=== PATIENT | male | born 1965 | race Caucasian/White ===

== ENCOUNTER 2017-12-13 14:40 | Emergency (ER) | payer MEDICAID ==
[~2017-12-13] VITALS: Ht 190.5 cm; Wt 103.3 kg
[2017-12-13 14:41] VITALS: BP 142/84
== END 2017-12-13 16:03 | disposition home or self-care (01) ==
LOC: ED 16:00
DX: J20.9 Acute bronchitis, unspecified (principal); J00 Acute nasopharyngitis [common cold]; F10.20 Alcohol dependence, uncomplicated; M79.1 Myalgia
CPT/HCPCS: 71046; 99284

== ENCOUNTER 2018-05-04 13:22 | Emergency (ER) | payer MEDICAID ==
[~2018-05-04] VITALS: Ht 190.5 cm; Wt 107.7 kg
[2018-05-04 13:31] VITALS: BP 144/80
== END 2018-05-04 14:07 | disposition home or self-care (01) ==
LOC: ED 14:01
DX: J01.00 Acute maxillary sinusitis, unspecified (principal); B34.9 Viral infection, unspecified; Z87.891 Personal history of nicotine dependence; Z86.19 Personal history of other infectious and parasitic diseases
CPT/HCPCS: 99283

== ENCOUNTER 2018-07-20 19:29 | Inpatient (IN) | payer MEDICAID ==
[~2018-07-20] VITALS: Ht 191.8 cm; Wt 98.5 kg
[2018-07-20] MEDS ORDERED: THIAMINE 100MG TABLET ONE (19:58)
[2018-07-20] MEDS ORDERED: ONDANSETRON ODT 4 MG ONE (19:59)
[2018-07-20] MEDS ORDERED: THIAMINE 100MG TABLET PO ONE (20:00)
[2018-07-20] MEDS ORDERED: FAMOTIDINE 20 MG/2 ML IVP ONE (20:00)
[2018-07-20] MEDS ORDERED: SODIUM CHLORIDE 0.9% 1,000ML IVBOLUS ONE (20:00)
[2018-07-20] MEDS ORDERED: ONDANSETRON ODT 4 MG PO ONE (20:00)
[2018-07-20 20:11] LABS: BASOPHILS # (AUTO) 0.04 x10^3/uL (0-0.1); BASOPHILS % (AUTO) 0 % (0-1); EOSINOPHILS # (AUTO) 0.04 x10^3/uL (0-0.4); EOSINOPHILS % (AUTO) 0 % (1-7); LYMPHOCYTES # (AUTO) 2.08 x10^3/uL (1-3.4); LYMPHOCYTES % (AUTO) 20 % (22-44); MD NO; MEAN CORPUSCULAR HEMOGLOBIN 31.5 pg (27.5-34.5); MEAN CORPUSCULAR HGB CONC 33.1 g/dL (33.2-36.2); MEAN CORPUSCULAR VOLUME 95.2 fL (81-97); MONOCYTES # (AUTO) 0.65 x10^3/uL (0.2-0.8); MONOCYTES % (AUTO) 6 % (2-9); NEUTROPHILS # (AUTO) 7.88 x10^3/uL (1.8-6.8); NEUTROPHILS % (AUTO) 74 % (42-75); PLATELET COUNT 286 x10^3/uL (130-400); RED BLOOD COUNT 4.92 x10^6/uL (4.38-5.82); RED CELL DISTRIBUTION WIDTH 15.3 % (9.4-14.8)
[2018-07-20 20:14] LABS: ALANINE AMINOTRANSFERASE 32 U/L (12-78); ALBUMIN 3.5 g/dL (3.4-5.0); ANION GAP 7 mmol/L (5-15); CALCIUM 8.3 mg/dL (8.5-10.1); CHLORIDE 109 mmol/L (98-107); CREATININE 1.07 mg/dL (0.7-1.3)
[2018-07-20] MEDS ORDERED: FAMOTIDINE 20 MG/2 ML ONE (20:18)
[2018-07-20 20:19] LABS: ALKALINE PHOSPHATASE 60 U/L (45-117); BILIRUBIN,TOTAL 0.6 mg/dL (0.2-1.0); TOTAL PROTEIN 6.5 g/dL (6.4-8.2); TROPONIN I < 0.015 ng/mL (0.000-0.045)
--- NOTE | 2018-07-20 20:26 | NUR ---
SUMMARY: PT. TO ED WITH C/O EPIGASTRIC ABD PAIN "HEART BURN" AND N/V ALL DAY TODAY. REPORTS WAS SOBER X 1 YEAR AND HAS BEEN ON A BINGE DRINKING X 1 WEEK. PT. CALM/COOPERATIVE. SKIN PWD. NO TREMORS NOTED. LABS WERE DRAWN, CHEST X-RAY COMPLETED, IV STARTED AND PT. MEDICATED PER MAR WITH IVF INFUSING PER ORDER. PT. PLACED ON ALL MONITORS AND EKG DONE BY EDTA. PT. IN A-FIB WITH RATE OF 83-113. PT. DENIES HX OF THIS. MEENU MONTIEL UPDATED. PT. HAS CALL LIGHT IN REACH AND FRIENDS AT FOR SUPPORT. MAGEN.
[2018-07-20] MEDS ORDERED: MELO15TA24 PO (20:33)
--- NOTE | 2018-07-20 20:37 | NUR ---
MEENU MONTIEL IN TO DISCUSS PLAN FOR ADMISSION WITH PT.
--- NOTE | 2018-07-20 20:57 | NUR ---
PT. PROVIDED WITH URINAL TO VOID. PT. EDUCATED ON WHY HE CAN'T WALK DOWN THE ALEMAN TO THE BR AND VERBALIZED UNDERSTANDING. PT. IN A-FIB ON THE MONITOR WITH A RATE FROM 90'S TO 130'S NOW. IVF COMPLETED. PT. DENIES OTHER NEEDS.
[2018-07-20] MEDS ORDERED: DILTIAZEM 5 MG/ML, 5ML ONE (21:17)
--- NOTE | 2018-07-20 21:25 | NUR ---
VS UPDATED. HR INCREASED TO 145-160 RANGE; MD WAS MADE AWARE AND NEW ORDERS WERE RECEIVED. PT. DENIES PAIN/DISCOMFORT AT THIS TIME. NADN. ALL MONITORS REMAIN IN PLACE. CALL LIGHT REAMAINS IN REACH.
[2018-07-20] MEDS ORDERED: DILTIAZEM 5 MG/ML, 5ML IVPush ONE (21:30)
[2018-07-20 21:42] LABS: INTERNATIONAL NORMALIZED RATIO 1.01 (0.93-1.1); PROTHROMBIN TIME 10.7 Seconds (9.6-11.5)
[2018-07-20] MEDS ORDERED: FINA5TAB PO (21:49)
--- NOTE | 2018-07-20 21:49 | NUR ---
REPORT TO ESTEFANIA KAUFMAN. FLOOR READY FOR PT. TRANSPORT.
[2018-07-20 22:08] VITALS: BP 163/89
[2018-07-21] MEDS ORDERED: POTASSIUM CHLORIDE 10 MEQ, MVI ADULT 10 ML, FOLIC ACID 1 MG, MAGNESIUM SULFATE 1 GM in ... IV SCH (00:29)
[2018-07-21] MEDS ORDERED: DILTIAZEM 5 MG/ML, 5ML IV ONE (00:29)
[2018-07-21] MEDS: NICOTINE 14MG/24 HR PATCH.TD24 TD SCH (00:30)
[2018-07-21] MEDS ORDERED: ASA/APAP/ CAFFEINE TABLET PO PRN (00:30)
[2018-07-21] MEDS ORDERED: ACETAMINOPHEN 325 MG TABLET PO PRN (00:30)
[2018-07-21] MEDS ORDERED: CHLORDIAZEPOXIDE 10 MG CAPSULE PO PRN (00:30)
[2018-07-21] MEDS ORDERED: ONDANSETRON 2MG/ML, 2ML IVPush PRN (00:30)
[2018-07-21] MEDS ORDERED: LACTATED RINGERS 1,000 ML IV SCH (01:00)
[2018-07-21] MEDS: PANTOPRAZOLE 40 MG IV IVPush SCH ×2 (01:54→13:28)
[2018-07-21] MEDS ORDERED: DILTIAZEM 125 MG in SODIUM CHLORIDE 0.9% 100 ML IV SCH (02:00)
[2018-07-21 02:38] VITALS: BP 132/84
[2018-07-21] MEDS: METOPROLOL TARTRATE 50 MG TABLET PO SCH ×2 (06:30→16:41)
[2018-07-21 07:21] VITALS: BP 140/90
[2018-07-21] MEDS: FINASTERIDE 5 MG TABLET PO SCH (08:55)
[2018-07-21] MEDS: THIAMINE 100MG TABLET PO SCH (08:55)
[2018-07-21 13:27] VITALS: BP 147/81
[2018-07-21] MEDS: DILTIAZEM 30 MG TABLET PO SCH ×2 (16:41→20:44)
[2018-07-21] MEDS: SODIUM CHLORIDE 0.9% 1,000 ML IV SCH (17:00)
[2018-07-21 19:11] VITALS: BP 126/70
[2018-07-22] MEDS: PANTOPRAZOLE 40 MG IV IVPush SCH ×2 (00:30→12:09)
[2018-07-22] MEDS: NICOTINE 14MG/24 HR PATCH.TD24 TD SCH (00:30)
[2018-07-22 01:44] VITALS: BP 148/79
[2018-07-22 01:44] LABS: ANION GAP 3 mmol/L (5-15); CALCIUM 7.5 mg/dL (8.5-10.1); CHLORIDE 111 mmol/L (98-107); CREATININE 0.72 mg/dL (0.7-1.3)
[2018-07-22] MEDS: SODIUM CHLORIDE 0.9% 1,000 ML IV SCH (04:36)
[2018-07-22] MEDS: DILTIAZEM 30 MG TABLET PO SCH (06:08)
[2018-07-22] MEDS: THIAMINE 100MG TABLET PO SCH (08:26)
[2018-07-22] MEDS: FINASTERIDE 5 MG TABLET PO SCH (08:26)
[2018-07-22 08:46] VITALS: BP 126/72
[2018-07-22] MEDS ORDERED: THIAMINE 100 MG in DEXTROSE 5% 50 ML IVPB SCH (09:00)
[2018-07-22] MEDS: DILTIAZEM 120 MG CAP.ER.24H PO SCH (12:09)
[2018-07-22] MEDS ORDERED: METOPROLOL TARTRATE 25 MG TABLET ONE (12:25)
[2018-07-22] MEDS ORDERED: DILTIAZEM 5 MG/ML, 5ML IVPush ONE (12:30)
[2018-07-22] MEDS ORDERED: DILTIAZEM 5 MG/ML, 5ML ONE (12:37)
[2018-07-22 12:47] VITALS: BP 123/82
[2018-07-22] MEDS: METOPROLOL TARTRATE 25 MG TABLET PO SCH ×2 (12:56→21:28)
[2018-07-22 19:51] VITALS: BP 126/83
[2018-07-23 00:12] VITALS: BP 116/76
[2018-07-23] MEDS: NICOTINE 14MG/24 HR PATCH.TD24 TD SCH (00:30)
[2018-07-23] MEDS: PANTOPRAZOLE 40 MG IV IVPush SCH ×2 (00:34→12:48)
[2018-07-23 07:08] VITALS: BP 130/91
[2018-07-23] MEDS: FINASTERIDE 5 MG TABLET PO SCH (07:39)
[2018-07-23] MEDS: THIAMINE 100MG TABLET PO SCH (07:39)
[2018-07-23] MEDS: METOPROLOL TARTRATE 25 MG TABLET PO SCH ×2 (07:40→17:20)
[2018-07-23] MEDS ORDERED: ASPI81TA45 PO (11:45)
[2018-07-23] MEDS ORDERED: PANT40TA5 PO (11:45)
[2018-07-23] MEDS ORDERED: DILT120C9 PO ×2 (11:45)
[2018-07-23] MEDS ORDERED: METO25TA35 PO (11:45)
[2018-07-23 12:14] VITALS: BP 125/84
[2018-07-23] MEDS: ASPIRIN 81 MG TABLET EC PO SCH (12:48)
[2018-07-23] MEDS: DILTIAZEM 120 MG CAP.ER.24H PO SCH (12:48)
[2018-07-23] MEDS ORDERED: DILTIAZEM 120 MG CAP.ER.24H PO ONE (13:00)
[2018-07-23 19:26] VITALS: BP 114/78
[2018-07-24] MEDS: NICOTINE 14MG/24 HR PATCH.TD24 TD SCH (00:28)
[2018-07-24] MEDS: PANTOPRAZOLE 40 MG IV IVPush SCH (00:29)
[2018-07-24 01:43] VITALS: BP 109/73
[2018-07-24 05:37] LABS: ANION GAP 6 mmol/L (5-15); CALCIUM 8.2 mg/dL (8.5-10.1); CHLORIDE 110 mmol/L (98-107); CREATININE 0.84 mg/dL (0.7-1.3)
[2018-07-24 05:57] LABS: BASOPHILS # (AUTO) 0.03 x10^3/uL (0-0.1); BASOPHILS % (AUTO) 0 % (0-1); EOSINOPHILS # (AUTO) 0.09 x10^3/uL (0-0.4); EOSINOPHILS % (AUTO) 1 % (1-7); LYMPHOCYTES # (AUTO) 1.92 x10^3/uL (1-3.4); LYMPHOCYTES % (AUTO) 22 % (22-44); MD NO; MEAN CORPUSCULAR HEMOGLOBIN 32.8 pg (27.5-34.5); MEAN CORPUSCULAR HGB CONC 34.2 g/dL (33.2-36.2); MEAN PLATELET VOLUME 7.2 fL (7.4-10.4); MONOCYTES # (AUTO) 0.63 x10^3/uL (0.2-0.8); MONOCYTES % (AUTO) 7 % (2-9); NEUTROPHILS # (AUTO) 5.94 x10^3/uL (1.8-6.8); NEUTROPHILS % (AUTO) 69 % (42-75); PLATELET COUNT 231 x10^3/uL (130-400); RED BLOOD COUNT 5.14 x10^6/uL (4.38-5.82); RED CELL DISTRIBUTION WIDTH 14.5 % (9.4-14.8)
[2018-07-24] MEDS: METOPROLOL TARTRATE 25 MG TABLET PO SCH (06:10)
[2018-07-24] MEDS: ASPIRIN 81 MG TABLET EC PO SCH (06:10)
[2018-07-24 07:35] VITALS: BP 105/73
[2018-07-24] MEDS ORDERED: DILTIAZEM 240 MG CAP.ER.24H PO SCH (09:00)
[2018-07-24] MEDS: FINASTERIDE 5 MG TABLET PO SCH (09:47)
[2018-07-24] MEDS: THIAMINE 100MG TABLET PO SCH (09:47)
[2018-07-24] MEDS ORDERED: PANTOPROZOLE 40MG TABLET PO SCH (11:30)
[2018-07-24] MEDS ORDERED: DILT240C55 PO (12:57)
[2018-07-24 12:59] VITALS: BP 134/89
== END 2018-07-24 16:07 | disposition home or self-care (01) | DRG 308 ==
LOC: ED 21:10 → EDIP 21:18 → 5SO 22:03 → DCLOUNGE 07-24 15:56
PROVIDERS: ADMIT Internal Medicine; ATTEND Internal Medicine
DX: I48.91 Unspecified atrial fibrillation (principal); K22.6 Gastro-esophageal laceration-hemorrhage syndrome; K29.01 Acute gastritis with bleeding; F10.239 Alcohol dependence with withdrawal, unspecified; B19.20 Unspecified viral hepatitis C without hepatic coma; E86.9 Volume depletion, unspecified; F10.229 Alcohol dependence with intoxication, unspecified; F17.200 Nicotine dependence, unspecified, uncomplicated; F32.9 Major depressive disorder, single episode, unspecified; I10 Essential (primary) hypertension; K29.20 Alcoholic gastritis without bleeding; M17.0 Bilateral primary osteoarthritis of knee; N40.0 Benign prostatic hyperplasia without lower urinary tract symptoms; Z79.899 Other long term (current) drug therapy; Z80.0 Family history of malignant neoplasm of digestive organs; Z71.6 Tobacco abuse counseling; Z71.41 Alcohol abuse counseling and surveillance of alcoholic
CPT/HCPCS: 36415; 71045; 80048; 80053; 83690; 83735; 84100; 84443; 84484; 85014; 85018; 85025; 85610; 85730; 93005; 93306; 96361; 96374; 96375; G0378; J3475; J3480; J7042; Q0162; C9113; J3490; J7030; J7120

== ENCOUNTER 2018-09-23 09:28 | Emergency (ER) | payer MEDICAID ==
[~2018-09-23] VITALS: Ht 190.5 cm; Wt 107.4 kg
[~2018-09-23 09:28] MED LIST: ASPI81TA45 PO; DILT120C9 PO; DILT240C55 PO; FINA5TAB PO; MELO15TA24 PO; METO25TA35 PO; PANT40TA5 PO
--- NOTE | 2018-09-23 09:54 | NUR ---
THIS IS A 53 YEAR OLD MALE WHO C/O OF NOT FEELING, NAUSEA AND VOMITING, LOOSE STOOL. STATES HE HAS "RAPID" HR AND FEELING DISORIENTED. PLACED PT ON LIQUEFACTION AND REGASIFICATION HELPER SINUS TACY AT 135, CYCLE BP AND CONTINOUS SP02
[2018-09-23] MEDS ORDERED: DILTIAZEM 5 MG/ML, 10ML ONE (10:03)
[2018-09-23 10:25] LABS: BASOPHILS # (AUTO) 0.03 x10^3/uL (0-0.1); BASOPHILS % (AUTO) 1 % (0-1); EOSINOPHILS # (AUTO) 0.06 x10^3/uL (0-0.4); EOSINOPHILS % (AUTO) 1 % (1-7); LYMPHOCYTES # (AUTO) 1.42 x10^3/uL (1-3.4); LYMPHOCYTES % (AUTO) 27 % (22-44); MD NO; MEAN CORPUSCULAR HEMOGLOBIN 31.6 pg (27.5-34.5); MEAN CORPUSCULAR HGB CONC 33.8 g/dL (33.2-36.2); MEAN CORPUSCULAR VOLUME 93.5 fL (81-97); MEAN PLATELET VOLUME 7.1 fL (7.4-10.4); MONOCYTES # (AUTO) 0.39 x10^3/uL (0.2-0.8); MONOCYTES % (AUTO) 7 % (2-9); NEUTROPHILS # (AUTO) 3.41 x10^3/uL (1.8-6.8); NEUTROPHILS % (AUTO) 64 % (42-75); PLATELET COUNT 232 x10^3/uL (130-400); RED BLOOD COUNT 4.93 x10^6/uL (4.38-5.82); RED CELL DISTRIBUTION WIDTH 13.6 % (9.4-14.8)
[2018-09-23] MEDS ORDERED: SODIUM CHLORIDE FLUSH 10ML SYR IVF ONE (10:30)
[2018-09-23] MEDS ORDERED: DILTIAZEM 5 MG/ML, 5ML IV ONE (10:30)
[2018-09-23 10:33] LABS: ALANINE AMINOTRANSFERASE 27 U/L (12-78); ALBUMIN 3.8 g/dL (3.4-5.0); ANION GAP 5 mmol/L (5-15); CALCIUM 8.6 mg/dL (8.5-10.1); CHLORIDE 107 mmol/L (98-107); CREATININE 0.97 mg/dL (0.7-1.3)
[2018-09-23 10:38] LABS: ALKALINE PHOSPHATASE 62 U/L (45-117); TOTAL PROTEIN 6.9 g/dL (6.4-8.2); TROPONIN I < 0.015 ng/mL (0.000-0.045)
[2018-09-23 11:54] VITALS: BP 122/72
--- NOTE | 2018-09-23 11:54 | NUR ---
Patient/Caregiver given discharge instructions and they have confirmed that they understand the instructions. Patient ambulatory with steady gait.
== END 2018-09-23 11:56 | disposition home or self-care (01) ==
LOC: ED 09:57
DX: I48.2 Chronic atrial fibrillation (principal); R11.10 Vomiting, unspecified; R53.1 Weakness; Z86.19 Personal history of other infectious and parasitic diseases
CPT/HCPCS: 36415; 80053; 84484; 85025; 93005; 96374

== ENCOUNTER 2020-01-05 10:39 | Emergency (ER) | payer MEDICAID ==
[~2020-01-05] VITALS: Ht 193 cm; Wt 105.7 kg
[~2020-01-05 10:39] MED LIST changes: +DILT120C48 PO; +DILT120C83 PO; -DILT120C9 PO; +HYDR-3237 PO
--- NOTE | 2020-01-05 11:05 | NUR ---
RECENT LEFT INQUINAL HERNAI SURGERY. TODA SWELLING TO THE AREA AND INCREASE IN PAIN.
[2020-01-05] MEDS ORDERED: ONDANSETRON 2MG/ML, 2ML ONE (11:19)
[2020-01-05] MEDS ORDERED: MORPHINE SULFATE 4 MG/ML, 1ML ONE ×2 (11:19→12:20)
[2020-01-05] MEDS: MORPHINE SULFATE 4 MG/ML, 1ML IVPush PRN ×2 (11:22→12:29)
[2020-01-05] MEDS ORDERED: ONDANSETRON 2MG/ML, 2ML IVPush ONE (11:30)
[2020-01-05 12:06] LABS: MEAN CORPUSCULAR HEMOGLOBIN 32.7 pg (27.5-34.5); MEAN CORPUSCULAR VOLUME 99.1 fL (81-97); PLATELET COUNT 464 x10^3/uL (130-400); RED BLOOD COUNT 3.97 x10^6/uL (4.38-5.82); RED CELL DISTRIBUTION WIDTH 13.4 % (9.4-14.8)
[2020-01-05 12:12] LABS: ALBUMIN 3.3 g/dL (3.4-5.0); ANION GAP 6 mmol/L (5-15); CALCIUM 9.1 mg/dL (8.5-10.1); CHLORIDE 111 mmol/L (98-107); CREATININE 0.95 mg/dL (0.7-1.3)
[2020-01-05] MEDS ORDERED: HYDROmorphone 1 MG/ML, 1ML INJ IV ONE (12:30)
[2020-01-05] MEDS ORDERED: HYDROmorphone 1 MG/ML, 1ML INJ ONE (12:40)
[2020-01-05 12:44] LABS: BASOPHILS # (AUTO) 0.04 x10^3/uL (0-0.1); BASOPHILS % (AUTO) 0 % (0-1); EOSINOPHILS # (AUTO) 0.11 x10^3/uL (0-0.4); EOSINOPHILS % (AUTO) 1 % (1-7); LYMPHOCYTES % (AUTO) 46 % (22-44); MD SCAN; MONOCYTES # (AUTO) 0.31 x10^3/uL (0.2-0.8); MONOCYTES % (AUTO) 3 % (2-9); NEUTROPHILS # (AUTO) 4.87 x10^3/uL (1.8-6.8); NEUTROPHILS % (AUTO) 50 % (42-75)
--- NOTE | 2020-01-05 12:49 | NUR ---
PT TO CT NOW
[2020-01-05] MEDS ORDERED: OMNIPAQUE 350 MG/ML, 100ML BOTTLE ONE (12:55)
[2020-01-05 13:00] VITALS: BP 121/73
--- NOTE | 2020-01-05 13:32 | NUR ---
PT STATES POSITIVE REIEF FROM PAIN. PT STATES 6/10 AND THAT IS ACCEPTABLE
== END 2020-01-05 15:26 | disposition home or self-care (01) ==
LOC: ED 12:56
DX: C85.80 Other specified types of non-Hodgkin lymphoma, unspecified site (principal); R00.0 Tachycardia, unspecified; R10.32 Left lower quadrant pain; I48.91 Unspecified atrial fibrillation; F17.210 Nicotine dependence, cigarettes, uncomplicated
CPT/HCPCS: 36415; 74177; 80048; 82040; 85025; 96374; 96375; 96376; 99285; J1170; J2270; J2405; Q9967

== ENCOUNTER 2020-01-13 14:33 | Emergency (ER) | payer MEDICAID ==
[~2020-01-13] VITALS: Ht 193 cm; Wt 105.5 kg
--- NOTE | 2020-01-13 15:00 | NUR ---
POWER REACTOR OPERATOR: PT TO ROOM FROM [facility]
[2020-01-13] MEDS ORDERED: ONDANSETRON 2MG/ML, 2ML IVPush ONE (16:00)
[2020-01-13] MEDS ORDERED: SODIUM CHLORIDE FLUSH 10ML SYR IVF ONE (16:00)
[2020-01-13] MEDS ORDERED: ONDANSETRON 2MG/ML, 2ML ONE (16:01)
[2020-01-13] MEDS ORDERED: MORPHINE SULFATE 4 MG/ML, 1ML ONE ×2 (16:02→18:02)
[2020-01-13] MEDS: MORPHINE SULFATE 4 MG/ML, 1ML IVPush PRN ×2 (16:27→18:11)
[2020-01-13 16:28] LABS: BASOPHILS # (AUTO) 0.04 x10^3/uL (0-0.1); BASOPHILS % (AUTO) 0 % (0-1); EOSINOPHILS # (AUTO) 0.12 x10^3/uL (0-0.4); EOSINOPHILS % (AUTO) 1 % (1-7); LYMPHOCYTES # (AUTO) 3.67 x10^3/uL (1-3.4); LYMPHOCYTES % (AUTO) 39 % (22-44); MD NO; MEAN CORPUSCULAR HEMOGLOBIN 32.9 pg (27.5-34.5); MEAN CORPUSCULAR HGB CONC 32.9 g/dL (33.2-36.2); MEAN CORPUSCULAR VOLUME 100.2 fL (81-97); MEAN PLATELET VOLUME 6.2 fL (7.4-10.4); MONOCYTES # (AUTO) 0.26 x10^3/uL (0.2-0.8); MONOCYTES % (AUTO) 3 % (2-9); NEUTROPHILS # (AUTO) 5.28 x10^3/uL (1.8-6.8); NEUTROPHILS % (AUTO) 56 % (42-75); PLATELET COUNT 282 x10^3/uL (130-400); RED BLOOD COUNT 4.16 x10^6/uL (4.38-5.82); RED CELL DISTRIBUTION WIDTH 14.4 % (9.4-14.8)
[2020-01-13 16:39] LABS: ALBUMIN 3.5 g/dL (3.4-5.0); ANION GAP 7 mmol/L (5-15); CALCIUM 8.9 mg/dL (8.5-10.1); CHLORIDE 112 mmol/L (98-107); CREATININE 0.91 mg/dL (0.7-1.3)
[2020-01-13 16:57] VITALS: BP 147/86
[2020-01-13] MEDS ORDERED: OMNIPAQUE 350 MG/ML, 100ML BOTTLE ONE (17:34)
== END 2020-01-13 18:24 | disposition home or self-care (01) ==
LOC: ED 17:37
DX: C85.80 Other specified types of non-Hodgkin lymphoma, unspecified site (principal); I48.91 Unspecified atrial fibrillation; F17.200 Nicotine dependence, unspecified, uncomplicated
CPT/HCPCS: 36415; 74177; 80048; 82040; 85025; 96374; 96375; 96376; 99285; J2270; J2405; Q9967

== ENCOUNTER 2020-02-11 17:56 | Emergency (ER) | payer MEDICAID ==
[~2020-02-11] VITALS: Ht 193 cm; Wt 107.3 kg
[~2020-02-11 17:56] MED LIST changes: -PANT40TA5 PO; +PANT40TA6 PO
[2020-02-11 19:19] LABS: MEAN CORPUSCULAR HEMOGLOBIN 34.5 pg (27.5-34.5); MEAN CORPUSCULAR HGB CONC 34.1 g/dL (33.2-36.2); MEAN CORPUSCULAR VOLUME 101.4 fL (81-97); MEAN PLATELET VOLUME 6.6 fL (7.4-10.4); PLATELET COUNT 220 x10^3/uL (130-400); RED BLOOD COUNT 4.45 x10^6/uL (4.38-5.82); RED CELL DISTRIBUTION WIDTH 15.6 % (9.4-14.8)
[2020-02-11] MEDS ORDERED: APIX5TAB PO (19:21)
[2020-02-11] MEDS ORDERED: METO25TA4 PO (19:21)
[2020-02-11] MEDS ORDERED: FURO20TA3 PO (19:21)
[2020-02-11] MEDS ORDERED: FINA5TAB4 PO (19:21)
--- NOTE | 2020-02-11 19:24 | NUR ---
C/O GENERALIZED ABD X 3 DAYS; CONSTANT PRESSURE, CRAMPY BURNING FEELING. DENIES N/V, DIARRHEA, CONSTIPATION, FEVER. NO MEDS TAKEN FOR SX. LAST ORAL INTAKE: 829 TODAY. LAST BM: TODAY.
[2020-02-11] MEDS ORDERED: TRAM50TA2 PO (19:31)
[2020-02-11 19:36] LABS: ALBUMIN 3.7 g/dL (3.4-5.0); ANION GAP 5 mmol/L (5-15); CALCIUM 8.9 mg/dL (8.5-10.1); CHLORIDE 110 mmol/L (98-107)
--- NOTE | 2020-02-11 19:38 | NUR ---
DR ROBERTS AT BS
[2020-02-11 19:41] LABS: ALANINE AMINOTRANSFERASE 23 U/L (12-78); ALKALINE PHOSPHATASE 72 U/L (45-117); BILIRUBIN,TOTAL 0.6 mg/dL (0.2-1.0); CREATININE 0.86 mg/dL (0.7-1.3); TOTAL PROTEIN 7.6 g/dL (6.4-8.2)
--- NOTE | 2020-02-11 19:42 | NUR ---
PT REFUSED TRAMADOL; ERP WILL BE NOTIFIED.
[2020-02-11 20:02] LABS: MD YES
[2020-02-11] MEDS ORDERED: OXYcodone/APAP 5/325MG TABLET ONE (20:11)
[2020-02-11 20:16] VITALS: BP 156/95
[2020-02-11 20:17] LABS: MICROSCOPIC INDICATED
[2020-02-11] MEDS ORDERED: OXYcodone/APAP 5/325MG TABLET PO ONE (20:30)
[2020-02-11 20:39] LABS: REACTIVE LYMPHS # (MANUAL) 1.01 x10^3/uL (0-0); REACTIVE LYMPHS % (MANUAL) 12 % (0-0)
[2020-02-11 20:41] LABS: BAND#(MANUAL) 0.08 x10^3/uL; BANDS%(MANUAL) 1 % (0-7); BASOS#(MANUAL) 0.08 x10^3/uL (0-0.1); BASOS% (MANUAL) 1 % (0-1); EOS#(MANUAL) 0.08 x10^3/uL (0.0-0.4); EOS% (MANUAL) 1 % (1-7); LYMPH#(MANUAL) 3.11 x10^3/uL (1-3.4); LYMPHS% (MANUAL) 37 % (22-44); MONOS#(MANUAL) 0.34 x10^3/uL (0.3-2.7); MONOS% (MANUAL) 4 % (2-9); SEGS% (MANUAL) 44 % (42-75)
[2020-02-11 20:43] LABS: TEAR DROPS 1+
[2020-02-11 20:44] LABS: <PLATELET ESTIMATE> ADEQUATE; <PLT MORPHOLOGY> NORMAL PLT MORPH; POLYCHROMASIA 1+
== END 2020-02-11 20:24 | disposition home or self-care (01) ==
LOC: ED 19:52
DX: R10.84 Generalized abdominal pain (principal); I48.91 Unspecified atrial fibrillation
CPT/HCPCS: 36415; 80053; 81001; 83690; 85025; 99283

== ENCOUNTER → 2020-03-05 | Outpatient (CLI) | payer MEDICAID ==
[~2020-03-05] MED LIST changes: +APIX5TAB PO; +FINA5TAB4 PO; +FURO20TA3 PO; +METO25TA4 PO; +TRAM50TA2 PO
== END | disposition home or self-care (01) ==
LOC: PETCFH 08:30
PROVIDERS: ATTEND Internal Medicine Hematology & Oncology
DX: C83.08 Small cell B-cell lymphoma, lymph nodes of multiple sites (principal)
CPT/HCPCS: 78815; A9552

== ENCOUNTER → 2020-05-27 | Outpatient (CLI) | payer MEDICAID | END | disposition home or self-care (01) | LOC: CVU 06:38 | PROVIDERS: ATTEND Internal Medicine Hematology & Oncology | DX: C83.00 Small cell B-cell lymphoma, unspecified site (principal); I08.8 Other rheumatic multiple valve diseases | CPT/HCPCS: 93306; 93356 ==

== ENCOUNTER → 2020-07-16 | Outpatient (CLI) | payer MEDICAID ==
[~2020-07-16] MED LIST changes: +OMNIPAQUE 350 MG/ML, 100ML BOTTLE ONE
== END | disposition home or self-care (01) ==
LOC: CFH 09:14
PROVIDERS: ATTEND Internal Medicine Hematology & Oncology
DX: C83.00 Small cell B-cell lymphoma, unspecified site (principal); K57.30 Diverticulosis of large intestine without perforation or abscess without bleeding; R59.0 Localized enlarged lymph nodes; I48.91 Unspecified atrial fibrillation
CPT/HCPCS: 71260; 74177; Q9967

== ENCOUNTER → 2020-10-08 | Outpatient (CLI) | payer MEDICAID | END | disposition home or self-care (01) | LOC: CFH 09:03 | PROVIDERS: ATTEND Internal Medicine Hematology & Oncology | DX: C83.00 Small cell B-cell lymphoma, unspecified site (principal); R59.0 Localized enlarged lymph nodes | CPT/HCPCS: 71260; Q9967 ==

== ENCOUNTER 2021-01-05 10:47 | Emergency (ER) | payer MEDICAID ==
[~2021-01-05] VITALS: Ht 193 cm; Wt 120.0 kg
[~2021-01-05 10:47] MED LIST changes: -OMNIPAQUE 350 MG/ML, 100ML BOTTLE ONE
[2021-01-05 11:34] LABS: BASOPHILS % (AUTO) 1 % (0-1); EOSINOPHILS % (AUTO) 0 % (1-7); LYMPHOCYTES % (AUTO) 15 % (22-44); MEAN CORPUSCULAR HEMOGLOBIN 33.4 pg (27.5-34.5); MEAN PLATELET VOLUME 8.5 fL (7.4-10.4); MONOCYTES % (AUTO) 8 % (2-9); NEUTROPHILS % (AUTO) 76 % (42-75); PLATELET COUNT 310 x10^3/uL (130-400); RED BLOOD COUNT 4.59 x10^6/uL (4.38-5.82); RED CELL DISTRIBUTION WIDTH 14.3 % (9.4-14.8)
[2021-01-05 11:44] LABS: ALBUMIN 4.1 g/dL (3.4-5.0); ANION GAP 9 mmol/L (5-15); CALCIUM 8.4 mg/dL (8.5-10.1); CHLORIDE 107 mmol/L (98-107); CREATININE 1.06 mg/dL (0.7-1.3)
--- NOTE | 2021-01-05 11:51 | NUR ---
pt changed into gown. ambulatory to restroom for urine sample. pt c/o bladder distension "i just cant get any relief". pt on chemo. hx of bph. pt denies any prior hx of symtoms similiar to this.
[2021-01-05 11:54] LABS: MICROSCOPIC AUTO
[2021-01-05] MEDS ORDERED: FINASTERIDE 5 MG TABLET PO ONE (12:00)
[2021-01-05] MEDS ORDERED: LIDOCAINE 2%,20 ML JEL.PF.APP MM ONE ×2 (12:00→12:12)
[2021-01-05] MEDS ORDERED: TAMSULOSIN 0.4 MG CAP.ER.24H PO ONE (12:00)
[2021-01-05] MEDS ORDERED: DILTIAZEM 120 MG CAP.ER.12H PO ONE (12:30)
[2021-01-05] MEDS ORDERED: APIXABAN 5 MG TABLET PO ONE (12:30)
--- NOTE | 2021-01-05 12:31 | NUR ---
16F MAZA PLACED. 1100CC TEA COLORED URINE RETURN. PT STATES IMMEDIATE RELIEF.
--- NOTE | 2021-01-05 12:33 | NUR ---
RADHIKA AGUERO SAMPLE COLLECTED & SENT
[2021-01-05] MEDS ORDERED: TAMSULOSIN 0.4 MG CAP.ER.24H ONE (12:40)
[2021-01-05] MEDS ORDERED: APIXABAN 5 MG TABLET ONE (12:40)
[2021-01-05] MEDS ORDERED: DILTIAZEM 5 MG/ML, 5ML IVPush ONE (13:00)
[2021-01-05] MEDS ORDERED: DILTIAZEM 5 MG/ML, 5ML ONE (13:00)
--- NOTE | 2021-01-05 13:07 | NUR ---
PT PLACED ON MONITOR. 133 CURRENTLY. AFIB. 20G TO LAC. CARDIZEM GIVEN. WILL MONITOR FOR EFFECTS.
[2021-01-05 13:27] VITALS: BP 134/89
--- NOTE | 2021-01-05 13:38 | NUR ---
CHANGED OVER TO LEG BAG. ADDITIONAL 300CC CLEAR YELLOW URINE RETURN. PT INSTRUCTED ON CLEANING & MAINTANCE OF MAZA & BAG. VERBALIZES & DEMONSTRATED PROPER CARE. DC INST GIVEN.
== END 2021-01-05 13:41 | disposition home or self-care (01) ==
LOC: ED 13:01
DX: I48.0 Paroxysmal atrial fibrillation (principal); N40.1 Benign prostatic hyperplasia with lower urinary tract symptoms; R33.8 Other retention of urine
CPT/HCPCS: 36415; 51702; 80048; 81001; 82040; 85025; 87086; 93005; 96374